=== PATIENT | female | born 1960 | race Caucasian/White ===

== ENCOUNTER 2017-09-03 10:36 | Observation (INO) | payer OTHER ==
[~2017-09-03] VITALS: Ht 172.7 cm; Wt 74.9 kg
[2017-09-03 11:20] LABS: BASOPHILS # (AUTO) 0.03 x10^3/uL (0-0.1); BASOPHILS % (AUTO) 1 % (0-1); EOSINOPHILS # (AUTO) 0.11 x10^3/uL (0-0.4); EOSINOPHILS % (AUTO) 3 % (1-7); LYMPHOCYTES # (AUTO) 1.99 x10^3/uL (1-3.4); LYMPHOCYTES % (AUTO) 46 % (22-44); MD NO; MEAN CORPUSCULAR HEMOGLOBIN 32.2 pg (27.0-34.8); MEAN CORPUSCULAR HGB CONC 34.7 g/dL (32.4-35.8); MEAN CORPUSCULAR VOLUME 92.7 fL (80-100); MEAN PLATELET VOLUME 7.2 fL (7.4-10.4); MONOCYTES # (AUTO) 0.25 x10^3/uL (0.2-0.8); MONOCYTES % (AUTO) 6 % (2-9); NEUTROPHILS # (AUTO) 1.92 x10^3/uL (1.8-6.8); NEUTROPHILS % (AUTO) 45 % (42-75); PLATELET COUNT 321 x10^3/uL (130-400); RED BLOOD COUNT 4.04 x10^6/uL (3.82-5.3); RED CELL DISTRIBUTION WIDTH 12.7 % (9.6-15.2)
[2017-09-03 11:29] LABS: INTERNATIONAL NORMALIZED RATIO 0.98 (0.93-1.1); PROTHROMBIN TIME 10.2 Seconds (9.6-11.5)
[2017-09-03] MEDS ORDERED: ASPIRIN 81 MG TABLET CHEW ONE (11:30)
[2017-09-03] MEDS ORDERED: ASPIRIN 81 MG TABLET CHEW PO ONE (11:30)
[2017-09-03] MEDS ORDERED: SODIUM CHLORIDE FLUSH 10ML SYR IVF ONE (11:30)
[2017-09-03 11:33] LABS: ALBUMIN 3.7 g/dL (3.4-5.0); ANION GAP 6 mmol/L (5-15); CALCIUM 8.6 mg/dL (8.5-10.1); CHLORIDE 107 mmol/L (98-107); CREATININE 0.98 mg/dL (0.55-1.02)
[2017-09-03 11:37] LABS: TROPONIN I < 0.015 ng/mL (0.000-0.045)
[2017-09-03] MEDS ORDERED: SODIUM CHLORIDE 0.9% 1,000 ML IV ONE (12:30)
[2017-09-03] MEDS ORDERED: LABETALOL 5MG/ML, 20ML IVPush PRN (12:30)
[2017-09-03] MEDS ORDERED: ONDANSETRON ODT 4 MG PO PRN (12:30)
[2017-09-03] MEDS ORDERED: ACETAMINOPHEN 325 MG TABLET PO PRN (12:30)
[2017-09-03] MEDS ORDERED: NITROGLYCERIN 0.4 MG BOTTLE (25 TABS) SL PRN (12:30)
[2017-09-03] MEDS ORDERED: ONDANSETRON 2MG/ML, 2ML IVPush PRN (12:30)
[2017-09-03] MEDS ORDERED: SODIUM CHLORIDE FLUSH 10ML SYR IVF PRN (12:30)
[2017-09-03] MEDS ORDERED: ENALAPRILAT 1.25 MG/ML, 2ML IVPush PRN (12:30)
[2017-09-03 14:00] VITALS: BP 121/65
[2017-09-03 16:16] LABS: TROPONIN I < 0.015 ng/mL (0.000-0.045)
[2017-09-03 19:22] VITALS: BP 109/63
[2017-09-03 22:37] LABS: TROPONIN I < 0.015 ng/mL (0.000-0.045)
[2017-09-04 01:55] VITALS: BP 95/58
[2017-09-04] MEDS ORDERED: LEVO25TA4 PO (04:19)
[2017-09-04 05:16] LABS: BASOPHILS # (AUTO) 0.03 x10^3/uL (0-0.1); BASOPHILS % (AUTO) 1 % (0-1); EOSINOPHILS # (AUTO) 0.25 x10^3/uL (0-0.4); EOSINOPHILS % (AUTO) 5 % (1-7); LYMPHOCYTES # (AUTO) 2.47 x10^3/uL (1-3.4); LYMPHOCYTES % (AUTO) 51 % (22-44); MD NO; MEAN CORPUSCULAR HEMOGLOBIN 32.1 pg (27.0-34.8); MEAN CORPUSCULAR HGB CONC 34.5 g/dL (32.4-35.8); MEAN CORPUSCULAR VOLUME 93.1 fL (80-100); MEAN PLATELET VOLUME 7.4 fL (7.4-10.4); MONOCYTES % (AUTO) 8 % (2-9); NEUTROPHILS # (AUTO) 1.73 x10^3/uL (1.8-6.8); NEUTROPHILS % (AUTO) 35 % (42-75); PLATELET COUNT 289 x10^3/uL (130-400); RED CELL DISTRIBUTION WIDTH 12.9 % (9.6-15.2)
[2017-09-04 05:17] LABS: ANION GAP 6 mmol/L (5-15); CALCIUM 8.2 mg/dL (8.5-10.1); CHLORIDE 111 mmol/L (98-107)
[2017-09-04 05:28] LABS: CHOL/HDL RATIO 4.2; CHOLESTEROL, TOTAL 191 mg/dL (140-239); CREATININE 0.96 mg/dL (0.55-1.02); FREE T4 (FREE THYROXINE) 0.99 ng/dL (0.76-1.46); HDL CHOL % 24 % (28-40); HDL CHOLESTEROL (DIRECT) 45 mg/dL (40-60); LDL CHOLESTEROL,CALCULATED 125 mg/dL (54-169); LDL/HDL RATIO 2.8 (0.5-3.0); TRIGLYCERIDES 107 mg/dL (50-200); VLDL CHOLESTEROL 21 mg/dL (0-25)
[2017-09-04 07:43] VITALS: BP 123/66
[2017-09-04] MEDS ORDERED: ESTR0.3T PO (07:43)
[2017-09-04] MEDS ORDERED: REGADENOSON 0.4 MG/5 ML SYRINGE ONE (08:39)
[2017-09-04 13:55] VITALS: BP 106/57
== END 2017-09-04 15:29 | disposition home or self-care (01) ==
LOC: ED 11:04 → EDIP 12:18 → 5SO 13:15
PROVIDERS: ADMIT Internal Medicine; ATTEND Internal Medicine
DX: R07.89 Other chest pain (principal); E03.9 Hypothyroidism, unspecified; E78.5 Hyperlipidemia, unspecified; F43.9 Reaction to severe stress, unspecified; Z82.49 Family history of ischemic heart disease and other diseases of the circulatory system
CPT/HCPCS: 36415; 71046; 78452; 80048; 80061; 82040; 84439; 84443; 84484; 85025; 85610; 85730; 93005; 93017; 93306; 96360; 96361; 99285; A9502; C9898; G0378; J2785; J7030